=== PATIENT | female | born 1955 | race Caucasian/White ===

== ENCOUNTER 2017-06-05 05:21 | Inpatient (IN) | payer BC ==
[~2017-06-05] VITALS: Ht 162.6 cm; Wt 81.6 kg
[2017-06-05] MEDS ORDERED: CELECOXIB 200 MG CAPSULE ONE (06:00)
[2017-06-05] MEDS ORDERED: GABAPENTIN 300 MG CAPSULE ONE (06:00)
[2017-06-05] MEDS ORDERED: ACETAMINOPHEN 325 MG TABLET ONE (06:02)
[2017-06-05] MEDS ORDERED: oxyCODONE HCL 10 MG TAB.ER.12H PO ONE ×2 (06:03→06:45)
[2017-06-05] MEDS ORDERED: ACETAMINOPHEN 500 MG TABLET ONE (06:04)
[2017-06-05] MEDS ORDERED: TRANEXAMIC ACID 650 MG TABLET ONE (06:39)
[2017-06-05] MEDS ORDERED: TRANEXAMIC ACID 650 MG TABLET PO ONE (06:45)
[2017-06-05] MEDS ORDERED: ROPIVACAINE 0.2% (NAROPIN) PF SOLUTION 100 ML BOTTLE EP ONE (06:45)
[2017-06-05] MEDS ORDERED: ONDANSETRON HCL 4 MG/2 ML VIAL IVP ONE (06:45)
[2017-06-05] MEDS ORDERED: ROPIVACAINE HCL/PF 5 MG/ML 0.5% 30 ML VIAL INJ ONE (06:45)
[2017-06-05] MEDS ORDERED: EPINEPHrine 1 MG/ML AMP IVP ONE (06:45)
[2017-06-05] MEDS ORDERED: DEXAMETHASONE SOD PHOSPHATE 4 MG/ML VIAL IVP ONE (06:45)
[2017-06-05] MEDS ORDERED: CELECOXIB 200 MG CAPSULE PO ONE (06:45)
[2017-06-05] MEDS ORDERED: TRANEXAMIC ACID 1,000 MG/10 ML VIAL IV ONE (06:45)
[2017-06-05] MEDS ORDERED: ACETAMINOPHEN 500 MG TABLET PO ONE (06:45)
[2017-06-05] MEDS ORDERED: MORPHINE SULFATE 10MG/10ML PF AMP EP ONE (06:45)
[2017-06-05] MEDS ORDERED: ROCURONIUM BROMIDE 10 MG/ML (ZEMURON) IV ONE (06:45)
[2017-06-05] MEDS ORDERED: LR 1,000 ML IV.SOLN IV ONE (06:45)
[2017-06-05] MEDS ORDERED: MIDAZOLAM HCL 5 MG/5 ML VIAL IVP ONE (06:45)
[2017-06-05] MEDS ORDERED: SEVOFLURANE 15 MIN GAS INH ONE (06:45)
[2017-06-05] MEDS ORDERED: DILTIAZEM HCL 25 MG/5 ML VIAL IV ONE (06:45)
[2017-06-05] MEDS ORDERED: BUPIVACAINE /EPINEPHRINE/PF 0.5% 30 ML VIAL INJ ONE (06:45)
[2017-06-05] MEDS ORDERED: GABAPENTIN 300 MG CAPSULE PO ONE (06:45)
[2017-06-05] MEDS ORDERED: LR 1,000 ML IV ONE (06:45)
[2017-06-05] MEDS ORDERED: PROPOFOL 200MG/ 20ML VIAL (DIPRIVAN) IV ONE (06:45)
[2017-06-05] MEDS ORDERED: CEFAZOLIN SOD 2 GM in D5W 50 ML IV ONE (06:45)
[2017-06-05] MEDS ORDERED: LIDOCAINE 1% 10 MG/ML, 20 ML MDV INJ ONE (06:45)
[2017-06-05] MEDS ORDERED: NS 100 ML BAG IV ONE (06:45)
[2017-06-05] MEDS ORDERED: fentaNYL CITRATE 250 MCG/5 ML AMP IV ONE (06:45)
[2017-06-05] MEDS ORDERED: POLYMYXIN 500,000/BACIT.10,000 UNITS in NS IRR 1 L IR ONE (07:14)
[2017-06-05] MEDS ORDERED: KETOROLAC TROMETHAMINE 30 MG VIAL ONE (07:18)
[2017-06-05] MEDS ORDERED: FAMOTIDINE PF 20 MG/2 ML VIAL ONE (07:21)
[2017-06-05] MEDS ORDERED: LR 1,000 ML IV SCH (08:06)
[2017-06-05] MEDS ORDERED: HYDROmorphone 1 MG INJ. 1 MG/ML AMPUL IVP PRN (08:15)
[2017-06-05] MEDS ORDERED: MEPERIDINE HCL/PF 25 MG/ML DISP.SYRIN IVP PRN (08:15)
[2017-06-05] MEDS ORDERED: HYDROmorphone 2 MG/ML VIAL IVP PRN ×2 (08:15)
[2017-06-05] MEDS ORDERED: ROPIVACAINE 0.2% 100 ML INJ SCH (09:24)
[2017-06-05] MEDS ORDERED: ACETAMINOPHEN I.V. 1000 MG 100 ML IV PRN (09:30)
[2017-06-05] MEDS ORDERED: HYDROcodone/ACETAMIN 10-325 MG TAB PO PRN ×2 (09:30)
[2017-06-05] MEDS ORDERED: ONDANSETRON HCL 4 MG/2 ML VIAL IVP PRN (09:45)
[2017-06-05] MEDS ORDERED: KETOROLAC TROMETHAMINE 30 MG VIAL IVP PRN (09:45)
[2017-06-05] MEDS ORDERED: PROMETHAZINE HCL 25 MG/ML AMP IVP PRN (09:45)
[2017-06-05] MEDS ORDERED: oxyCODONE HCL 5 MG TABLET PO PRN (09:45)
[2017-06-05] MEDS ORDERED: SENNOSIDES 8.6 MG TABLET PO PRN (09:45)
[2017-06-05] MEDS ORDERED: DIPHENHYDRAMINE HCL 25 MG CAPSULE PO PRN (09:45)
[2017-06-05] MEDS ORDERED: LISI10TA5 PO (10:22)
[2017-06-05] MEDS ORDERED: RANI300T4 PO (10:22)
[2017-06-05] MEDS ORDERED: GLIP5TAB13 PO (10:22)
[2017-06-05] MEDS ORDERED: SIMV40TA2 PO (10:22)
[2017-06-05] MEDS ORDERED: SITA100T7 PO (10:22)
[2017-06-05] MEDS ORDERED: GLUXR500 PO (10:22)
[2017-06-05] MEDS ORDERED: MONT10TA25 PO (10:22)
[2017-06-05] MEDS ORDERED: LANS15CA5 PO (10:22)
[2017-06-05] MEDS ORDERED: ESTR0.3T3 PO (10:22)
[2017-06-05] MEDS ORDERED: METO5TAB95 PO (10:22)
[2017-06-05 11:45] VITALS: BP_SYST 153
[2017-06-05] MEDS: LR 1,000 ML IV SCH ×2 (12:00→21:14)
[2017-06-05 13:19] VITALS: BP_SYST 157
[2017-06-05 13:35] VITALS: BP_SYST 158
[2017-06-05] MEDS: CEFAZOLIN 1 GM IVPB PREMIX 50 ML IV SCH ×2 (15:45→22:43)
[2017-06-05] MEDS: ACETAMINOPHEN 500 MG TABLET PO SCH ×2 (15:46→21:12)
[2017-06-05] MEDS: oxyCODONE HCL 5 MG TABLET PO PRN ×2 (15:48→22:43)
[2017-06-05 16:00] VITALS: BP_SYST 146
[2017-06-05] MEDS: RIVAROXABAN 10 MG TABLET PO SCH (17:42)
[2017-06-05] MEDS: CELECOXIB 200 MG CAPSULE PO SCH (21:11)
[2017-06-05] MEDS: GABAPENTIN 300 MG CAPSULE PO SCH (21:12)
[2017-06-06] VITALS: BP_SYST 101
[2017-06-06 04:08] VITALS: BP_SYST 104
[2017-06-06] MEDS: CALCIUM CARBONATE 500 MG/ TAB.CHEW PO PRN ×3 (05:00→23:24)
[2017-06-06] MEDS: LR 1,000 ML IV SCH (06:13)
[2017-06-06] MEDS: CEFAZOLIN 1 GM IVPB PREMIX 50 ML IV SCH (06:13)
[2017-06-06 06:22] LABS: BASOPHILS % (AUTO) 0.2 % (0.0-2.0); EOSINOPHILS % (AUTO) 0.1 % (0.0-4.0); HEMATOCRIT 34.8 % (36-48); HEMOGLOBIN 11.7 g/dL (12.0-16.0); LYMPHOCYTES # (AUTO) 1.2 K/uL (1.0-5.5); LYMPHOCYTES % (AUTO) 6.8 % (20.5-51.5); MEAN CORPUSCULAR HEMOGLOBIN 30 pg (27-31); MEAN CORPUSCULAR HGB CONC 34 % (32-36); MEAN CORPUSCULAR VOLUME 89 fL (79.0-98.0); MONOCYTES # (AUTO) 1.5 K/uL (0.0-1.0); MONOCYTES % (AUTO) 8.7 % (1.7-9.3); NEUTROPHILS # (AUTO) 15.1 K/uL (1.8-7.7); NEUTROPHILS % (AUTO) 84.2 % (40.0-70.0); PLATELET COUNT (AUTO) 188 K/uL (130-430); RED BLOOD CELL COUNT(AUTO) 3.92 MIL/uL (4.2-6.2); RED CELL DISTRIBUTION WIDTH 12.4 % (9.0-15.0); WHITE BLOOD COUNT (AUTO) 17.8 K/uL (4.8-10.8)
[2017-06-06 06:29] LABS: CALCIUM 7.9 mg/dL (8.4-11.0); CREATININE 0.77 mg/dL (0.55-1.30); POTASSIUM 4.6 mmol/L (3.5-5.1)
[2017-06-06] MEDS ORDERED: ROPIVACAINE 0.2% 100 ML INJ SCH (08:06)
[2017-06-06 08:13] VITALS: BP_SYST 114
[2017-06-06] MEDS ORDERED: HYDROcodone/ACETAMIN 10-325 MG TAB PO PRN ×2 (08:15)
[2017-06-06] MEDS ORDERED: ACETAMINOPHEN I.V. 1000 MG 100 ML IV PRN (08:15)
[2017-06-06] MEDS: ROPIVACAINE 0.2% 550 ML INJ SCH (08:21)
[2017-06-06] MEDS: CELECOXIB 200 MG CAPSULE PO SCH ×2 (08:54→20:26)
[2017-06-06] MEDS: ACETAMINOPHEN 500 MG TABLET PO SCH ×3 (08:55→20:26)
[2017-06-06] MEDS ORDERED: DEXTROSE 50% JECT 50 ML DISP.SYRIN IVP PRN (11:30)
[2017-06-06 12:00] VITALS: BP_SYST 110
[2017-06-06] MEDS: INSULIN REGULAR, HUMAN 100 UNITS/ML, 10 ML VIAL (novoLIN R) SUBCUT PRN ×3 (12:48→23:11)
[2017-06-06] MEDS: oxyCODONE HCL 5 MG TABLET PO PRN ×2 (17:05→23:26)
[2017-06-06] MEDS: RIVAROXABAN 10 MG TABLET PO SCH (17:09)
[2017-06-06 17:22] VITALS: BP_SYST 108
[2017-06-06 19:49] VITALS: BP_SYST 130
[2017-06-06] MEDS: GABAPENTIN 300 MG CAPSULE PO SCH (20:24)
[2017-06-07 00:39] VITALS: BP_SYST 133
[2017-06-07] MEDS: MORPHINE 4 MG/ML INJ. SYRINGE IVP PRN ×2 (01:46→06:25)
[2017-06-07 04:00] VITALS: BP_SYST 145
[2017-06-07] MEDS: LR 1,000 ML IV SCH (04:24)
[2017-06-07] MEDS: oxyCODONE HCL 5 MG TABLET PO PRN ×3 (04:29→11:29)
[2017-06-07] MEDS: INSULIN REGULAR, HUMAN 100 UNITS/ML, 10 ML VIAL (novoLIN R) SUBCUT PRN ×2 (06:09→12:42)
[2017-06-07 06:46] LABS: BASOPHILS # (AUTO) 0.1 K/uL (0.0-0.2); BASOPHILS % (AUTO) 0.5 % (0.0-2.0); EOSINOPHILS # (AUTO) 0.3 K/uL (0.0-0.4); EOSINOPHILS % (AUTO) 2.7 % (0.0-4.0); LYMPHOCYTES # (AUTO) 1.5 K/uL (1.0-5.5); LYMPHOCYTES % (AUTO) 12.5 % (20.5-51.5); MEAN CORPUSCULAR HEMOGLOBIN 30 pg (27-31); MEAN CORPUSCULAR HGB CONC 33 % (32-36); MEAN CORPUSCULAR VOLUME 90 fL (79.0-98.0); MONOCYTES # (AUTO) 1.6 K/uL (0.0-1.0); MONOCYTES % (AUTO) 13.5 % (1.7-9.3); NEUTROPHILS # (AUTO) 8.2 K/uL (1.8-7.7); NEUTROPHILS % (AUTO) 70.8 % (40.0-70.0); PLATELET COUNT (AUTO) 166 K/uL (130-430); RED BLOOD CELL COUNT(AUTO) 4.01 MIL/uL (4.2-6.2); RED CELL DISTRIBUTION WIDTH 12.3 % (9.0-15.0)
[2017-06-07 06:49] LABS: WHITE BLOOD COUNT (AUTO) 11.7 K/uL (4.8-10.8)
[2017-06-07 07:06] LABS: CALCIUM 8.4 mg/dL (8.4-11.0); CREATININE 0.79 mg/dL (0.55-1.30); POTASSIUM 4.4 mmol/L (3.5-5.1)
[2017-06-07 08:00] VITALS: BP_SYST 148
[2017-06-07] MEDS: CELECOXIB 200 MG CAPSULE PO SCH (08:43)
[2017-06-07] MEDS: ACETAMINOPHEN 500 MG TABLET PO SCH ×2 (08:43→16:18)
[2017-06-07] MEDS: ROPIVACAINE 0.2% 550 ML INJ SCH (08:54)
[2017-06-07 12:00] VITALS: BP_SYST 144
[2017-06-07 16:00] VITALS: BP_SYST 150
[2017-06-07 16:03] VITALS: BP_SYST 144
== END 2017-06-07 18:15 | DRG 470 ==
LOC: SMU 05:21 → STU 11:28 → SMU 06-07 09:05
PROVIDERS: ADMIT Orthopaedic Surgery; ATTEND Orthopaedic Surgery
PROC: 0SRD0J9 Replacement of Left Knee Joint with Synthetic Substitute, Cemented, Open Approach (ICD-10-PCS; principal; 2017-06-05 07:30)
DX: M17.12 Unilateral primary osteoarthritis, left knee (principal); E11.9 Type 2 diabetes mellitus without complications; Z98.84 Bariatric surgery status; Z79.899 Other long term (current) drug therapy
CPT/HCPCS: 36415; 71010; 80048; 82947-TC; 82962; 85025; 87081; 88305; 88311; 94010; 97039; 97110-GP; 97116-GP; 97530-GP; C1713; C1776; J0171; J0690; J1100; J1815; J1885; J2001; J2250; J2270; J2274; J2405; J2704; J2795; J3010; J3490; J7060; J7120; Q0163

== ENCOUNTER 2019-06-24 07:43 | Day surgery (SDC) | payer BC, OTHER ==
[~2019-06-24] VITALS: Ht 162.6 cm; Wt 73.0 kg
[~2019-06-24 07:43] MED LIST: CEFAZOLIN SOD 1 GM in D5W 50 ML IV ONE; ESTR0.3T3 PO; GLIP5TAB13 PO; GLUXR500 PO; LANS15CA14 PO; LISI10TA5 PO; METO-549 PO; MONT10TA25 PO; RANI300T4 PO; SIMV40TA2 PO; SITA100T11 PO
[2019-06-24] MEDS ORDERED: ONDANSETRON HCL 4 MG/2 ML VIAL IVP ONE (11:15)
[2019-06-24] MEDS ORDERED: LR 1,000 ML IV.SOLN IV ONE (11:15)
[2019-06-24] MEDS ORDERED: SEVOFLURANE 15 MIN GAS INH ONE (11:15)
[2019-06-24] MEDS ORDERED: ROCURONIUM BROMIDE 10 MG/ML (ZEMURON) IV ONE (11:15)
[2019-06-24] MEDS ORDERED: fentaNYL CITRATE 250 MCG/5 ML AMP IV ONE (11:15)
[2019-06-24] MEDS ORDERED: PROPOFOL 200MG/ 20ML VIAL (DIPRIVAN) IV ONE (11:15)
[2019-06-24] MEDS ORDERED: NS IRRIG SOLN 1000 ML IR ONE (11:15)
[2019-06-24] MEDS ORDERED: MIDAZOLAM HCL 5 MG/5 ML VIAL IVP ONE (11:15)
[2019-06-24] MEDS ORDERED: BUPIVACAINE /PF 0.25% 30 ML VIAL INJ ONE (11:15)
[2019-06-24] MEDS ORDERED: LR 1,000 ML IV SCH (12:04)
[2019-06-24] MEDS ORDERED: HYDROmorphone 1 MG INJ. 1 MG/ML AMPUL IVP PRN ×2 (12:15)
[2019-06-24] MEDS ORDERED: METOCLOPRAMIDE HCL 10 MG/2 ML VIAL IVP PRN (12:15)
[2019-06-24] MEDS ORDERED: HYDROmorphone 2 MG/ML VIAL IVP PRN (12:15)
[2019-06-24] MEDS ORDERED: D5/0.45 NS 1,000 ML IV SCH (12:25)
[2019-06-24] MEDS ORDERED: HYDROcodone/ACETAMIN 5-325 MG TAB (NORCO/ VICODIN) PO ONE (13:30)
[2019-06-24] MEDS ORDERED: HYDROcodone/ACETAMIN 5-325 MG TAB (NORCO/ VICODIN) ONE (13:39)
[2019-06-24 15:30] VITALS: BP_SYST 139
== END 2019-06-24 15:05 | disposition home or self-care (01) ==
LOC: SDS 07:43 → SMU 07:43 → SDS 15:05
PROVIDERS: ATTEND Colon & Rectal Surgery
DX: D24.1 Benign neoplasm of right breast (principal); E11.40 Type 2 diabetes mellitus with diabetic neuropathy, unspecified; M19.90 Unspecified osteoarthritis, unspecified site; Z79.899 Other long term (current) drug therapy; Z88.1 Allergy status to other antibiotic agents; Z88.5 Allergy status to narcotic agent; J45.909 Unspecified asthma, uncomplicated; Z85.828 Personal history of other malignant neoplasm of skin; E11.22 Type 2 diabetes mellitus with diabetic chronic kidney disease; I12.9 Hypertensive chronic kidney disease with stage 1 through stage 4 chronic kidney disease, or unspecified chronic kidney disease; N18.1 Chronic kidney disease, stage 1; E11.3299 Type 2 diabetes mellitus with mild nonproliferative diabetic retinopathy without macular edema, unspecified eye; E78.5 Hyperlipidemia, unspecified; Z96.652 Presence of left artificial knee joint; Z90.49 Acquired absence of other specified parts of digestive tract; Z98.84 Bariatric surgery status; Z90.89 Acquired absence of other organs; K21.9 Gastro-esophageal reflux disease without esophagitis
CPT/HCPCS: 19301; 88307; J0690; J2250; J2405; J2704; J3010; J3490; J7060; J7120; 19081; 88305

== ENCOUNTER 2020-11-08 12:37 | Emergency (ER) | payer BC, OTHER ==
[~2020-11-08] VITALS: Ht 160 cm; Wt 73.9 kg
[2020-11-08 12:37] VITALS: BP_SYST 130
[~2020-11-08 12:37] MED LIST changes: -CEFAZOLIN SOD 1 GM in D5W 50 ML IV ONE; -MONT10TA25 PO; +MONT10TA27 PO
--- NOTE | 2020-11-08 12:37 | NUR ---
BROUGHT IN BY [facility], TRIAGED, PT AWAITING AVAILABLE BEDS IN ER. MEDICS WITH PT.
--- NOTE | 2020-11-08 17:36 | NUR ---
Pt brought by Marlon CONKLIN&Ox4, pt presents to ER with R lower back pain radiating to R leg , pt describes like sciatica, skin pink and warm, cap refill <3, VSS, respirations even and unlabored.
--- NOTE | 2020-11-08 17:37 | NUR ---
Dr Alcantar evaluating patient at this time
[2020-11-08] MEDS ORDERED: HYDROcodone/ACETAMIN 5-325 MG TAB (NORCO/ VICODIN) ONE (17:59)
[2020-11-08] MEDS: HYDROcodone/ACETAMIN 5-325 MG TAB (NORCO/ VICODIN) PO ONE (18:02)
--- NOTE | 2020-11-08 18:11 | NUR ---
Pt off the unit for radiology
--- NOTE | 2020-11-08 19:30 | NUR ---
Pt A&Ox4, VSS ,respirations even and unlabored
[2020-11-08] MEDS: DECADRON 4 MG TABLET PO ONE (19:37)
--- NOTE | 2020-11-08 20:15 | NUR ---
Pt able to walk with assistance, well tolerated
--- NOTE | 2020-11-08 21:01 | NUR ---
Report given to AROLDO Fox for continuation of care.
[2020-11-08 21:07] VITALS: BP_SYST 120
--- NOTE | 2020-11-08 21:07 | NUR ---
Patient given written and verbal discharge instructions and verbalizes understanding. ER MD discussed with patient the results and treatment provided. Patient in stable condition. ID arm band removed. IV catheter removed intact and dressing applied, no active bleeding. Rx of given. Patient educated on pain management and to follow up with PMD. Pain Scale . Opportunity for questions provided and answered. Medication side effect fact sheet provided.
--- NOTE | 2020-11-09 12:54 | NUR ---
SPOKE WITH PT AND PT STATES SHE DID NOT GET HER PREDNISONE PRESCRIPTION. CALL PLACED TO [facility] AND [address], VERIFIED NO PREDNISONE PRESCRIPTION. SPOKE WITH DR HUTCHISON, PREDNISONE 50 MG PO DAILY X5DAYS. PT AWARE.
== END 2020-11-08 21:07 | disposition home or self-care (01) ==
LOC: SED 12:37
DX: M54.41 Lumbago with sciatica, right side (principal); I10 Essential (primary) hypertension; E11.9 Type 2 diabetes mellitus without complications; J45.909 Unspecified asthma, uncomplicated; Z88.6 Allergy status to analgesic agent; Z79.899 Other long term (current) drug therapy
CPT/HCPCS: 74176; 76376; 81002; 99284; J8540